=== PATIENT | female | born 1950 | race Caucasian/White ===

== ENCOUNTER → 2024-04-02 10:37 | Outpatient (REF) | payer MEDICARE, BC, SELFPAY ==
[2024-04-02 17:53] LABS: % Basophils 1.1 % (0-2); % Eosinophils 1.7 % (0-6); % Immature Granulocytes 0.3 % (0-0.5); % Lymphocytes 31.3 % (20.5-51.1); % Monocytes 9.4 % (1.7-9.3); % Neutrophils 56.2 % (42.2-75.2); Absolute Basophils 0.1 10^3/uL (0-0.2); Absolute Eosinophils 0.1 10^3/uL (0-0.7); Absolute Monocytes 0.6 10^3/uL (0.1-0.6); Absolute Neutrophils 3.6 10^3/uL (1.4-6.5); Hematocrit 42.6 % (37.0-47.0); Mean Corp Hgb Conc. 32.9 g/dL (33.0-37.0); Mean Corpuscular Hgb 32.1 pg (27.0-31.0); Mean Corpuscular Volume 97.7 fL (81.0-99.0); Nucleated Red Blood Cells % 0 %; Platelet Count 318 10^3/uL (130-400); Red Blood Cell Count 4.36 10^6/uL (4.20-5.40); Red Cell Dist. Width 12.2 % (11.5-14.5); Urine Albumin Negative (Neg - Trace); Urine Bilirubin Negative (Negative); Urine Character Clear (Clear); Urine Color Yellow; Urine Glucose Negative (Negative); Urine Ketone 1+ (Negative); Urine Leukocyte 1+ (Negative); Urine Nitrite Negative (Negative); Urine Occult Blood Negative (Negative); Urine Specific Gravity 1.015 (<1.030); Urine Urobilinogen Negative (Neg - 1+); Urine pH 6.5 (5.0-9.0); White Blood Cell Count 6.5 10^3/uL (4.8-10.8)
[2024-04-02 18:08] LABS: C-Reactive Protein < 5.00 mg/L (0.0-10.00)
[2024-04-02 18:10] LABS: Urine Red Blood Cell None Seen /HPF (0-2)
[2024-04-02 18:20] LABS: ALT (SGPT) 21 U/L (0-35); AST (SGOT) 35 U/L (14-36); Albumin 4.6 g/dl (3.5-5.0); Alkaline Phosphatase 78 U/L (38-126); Amylase 71 U/L (30-110); Blood Urea Nitrogen 19 mg/dl (7-17); Calcium 9.9 mg/dl (8.4-10.2); Carbon Dioxide 25 mmol/L (22-30); Chloride 105 mmol/L (98-107); Glucose 83 mg/dl (70-99); Lipase 105 U/L (23-300); Potassium 4.4 mmol/L (3.5-5.1); Sodium 136 mmol/L (135-145); Total Bilirubin 0.9 mg/dl (0.2-1.3); Total Protein 7.3 g/dl (6.3-8.2); eGFR > 60.00
== END ==
LOC: CLAB 10:37
PROVIDERS: ATTENDING PHYSICIAN Nurse Practitioner Family
DX: R10.9 Unspecified abdominal pain (principal); R35.0 Frequency of micturition
CPT/HCPCS: 80053; 81003; 81015; 82150; 83690; 85025; 86140; 87086

== ENCOUNTER → 2024-04-09 10:58 | Outpatient (REF) | payer MEDICARE, BC, SELFPAY | LOC: RAD 10:58 | PROVIDERS: ATTENDING PHYSICIAN Nurse Practitioner Family | DX: R10.9 Unspecified abdominal pain (principal); Z87.19 Personal history of other diseases of the digestive system; K57.90 Diverticulosis of intestine, part unspecified, without perforation or abscess without bleeding | CPT/HCPCS: 74177; Q9967 ==

== ENCOUNTER 2024-04-11 03:27 | Emergency (ER) | payer MEDICARE, BC, SELFPAY ==
[2024-04-11 03:28] VITALS: BP 158/68
[2024-04-11 04:19] LABS: % Basophils 1.3 % (0-2); % Eosinophils 2.4 % (0-6); % Immature Granulocytes 0.3 % (0-0.5); % Monocytes 12.9 % (1.7-9.3); % Neutrophils 47.1 % (42.2-75.2); Absolute Basophils 0.1 10^3/uL (0-0.2); Absolute Eosinophils 0.2 10^3/uL (0-0.7); Absolute Lymphocytes 2.5 10^3/uL (1.2-3.4); Absolute Monocytes 0.9 10^3/uL (0.1-0.6); Absolute Neutrophils 3.3 10^3/uL (1.4-6.5); Hematocrit 38.7 % (37.0-47.0); Hemoglobin 13.9 g/dL (12.0-16.0); Mean Corp Hgb Conc. 35.9 g/dL (33.0-37.0); Mean Corpuscular Hgb 32.1 pg (27.0-31.0); Mean Corpuscular Volume 89.4 fL (81.0-99.0); Mean Platelet Volume 9.6 fL (7.4-10.4); Nucleated Red Blood Cells % 0 %; Platelet Count 330 10^3/uL (130-400); Red Blood Cell Count 4.33 10^6/uL (4.20-5.40); Red Cell Dist. Width 11.9 % (11.5-14.5)
[2024-04-11 04:21] LABS: Urine Albumin Negative (Neg - Trace); Urine Bilirubin Negative (Negative); Urine Character Clear (Clear); Urine Color Yellow; Urine Glucose Negative (Negative); Urine Ketone Negative (Negative); Urine Leukocyte Negative (Negative); Urine Nitrite Negative (Negative); Urine Occult Blood Negative (Negative); Urine Urobilinogen Negative (Neg - 1+)
--- NOTE | 2024-04-11 04:28 | ED.GENMED ---
History of Present Illness
General
Chief Complaint: Abdominal Pain
Source: patient
Time Seen by Provider: 04/11/24 04:21
Travel History
Have you had any contact with someone who has COVID-19?: No
Do you have any symptoms of coronavirus? Fever > 100 degrees, chills, cough, shortness of breath, sore throat, loss of taste or smell, muscle aches, or headache?: No
History of Present Illness
History of Present Illness:
73-year-old female presents to the emergency room complaining of abdominal pain. Patient has been having crampy abdominal pain, gaseousness for the past couple weeks. She had a CAT scan yesterday which was reportedly normal. Patient comes back
today because she is concerned that she might have a bowel obstruction. No vomiting. She has had bowel movements though small. No fever or chills. No urinary symptoms.
Past History
Past History
ED Past Medical History: GERD, Hypercholesterolemia, Other (Diverticulitis, breast cancer, status post appendectomy status post cholecystectomy) and Other (thyroid nodules)
ED Past Surgical History: Appendectomy and Cholecystectomy
Social History
Tobacco: Non-smoker
Alcohol: None
Drug: None
Personal:
Living: with family
Family History
Family History: Other (Breast cancer)
Phy Exam
Physical Exam
Physical Exam:
General: Awake, Alert, Oriented X3. No acute distress.
Vitals: unremarkable
Head: Atraumatic
Eyes: Pupils equal, EOMI
Throat: Airway intact, no exudates
Neck: Trachea midline
Lungs: Clear and equal b/l
Heart: Regular rate, no murmurs
Abd: Soft, no reproducible abdominal pain to palpation, no pulsatile mass
Neuro: Nonfocal
Skin: Warm, dry, no rash
Extremities: pulses equal b/l, no edema
Course
Orders/Labs/Results
Orders:
Orders
04/11/24 04:04
Complete Blood Count/With Diff Urgent
Comprehensive Metabolic Panel Urgent
Lipase Urgent
04/11/24 04:07
Urinalysis Reflex To Culture Urgent
Date Specimen was Collected: 04/11/24
Time Specimen was Collected: 04:05
04/11/24 04:30
0.9% Sodium Chloride 500 ml [Nss] 500 ml IV BOLUS
Dicyclomine [Bentyl] 20 mg PO NOW STA
Abnormal Lab Results
04/11/24
04:04
MCH 32.1 H pg
(27.0-31.0)
Absolute Monos (auto) 0.9 H 10^3/uL
(0.1-0.6)
Monocytes % 12.9 H %
(1.7-9.3)
BUN 21 H mg/dl
(7-17)
04/11/24 04:04
04/11/24 04:04
Vital Signs
Initial and Last Documented VS:
Initial Vital Signs
Temp Pulse Resp BP Pulse Ox
97.5 F 55 16 158/68 99
04/11/24 03:28 04/11/24 03:28 04/11/24 03:28 04/11/24 03:28 04/11/24 03:28
Last Documented Vital Signs
Temp Pulse Resp BP Pulse Ox
97.6 F 47 16 134/62 100
04/11/24 05:25 04/11/24 05:25 04/11/24 05:25 04/11/24 05:25 04/11/24 05:25
MDM/Problems Addressed
Differential Diagnosis Includes:
Exacerbation of your bowel syndrome, diverticulitis, urinary tract infection
MDM/Problems Addressed:
Patient presents with left lower abdominal pain which has been something she has had from time to time. Patient had a CT scan of the abdomen pelvis yesterday which showed no acute abnormalities. Patient's labs are unremarkable. Urine shows no
evidence for urinary tract infection. Suspect the patient's symptoms are due to irritable bowel syndrome which she does have a history of. She felt better after Bentyl, IV fluids
Chronic conditions affecting care: Other (Irritable bowel syndrome)
*Pulse Oximetry
Patient hypoxic: no
*Critical Care Note
Total Time (30-74mins, 75-104mins- exclusive of procedures): Not Applicable
ED Attending Note
-
Portions of this chart may have been created with voice recognition software.� Occasional wrong word or��sound alike� substitutions may have occurred due to the inherent limitations of voice recognition software.
Discharge Plan
Departure
Patient Disposition: Home (Routine Discharge)
Date of Disposition: 04/11/24
Time of Disposition: :43
Patient with high blood pressure during this ER visit?: No
Condition: Good
Discharge Problem:
Abdominal pain, IBS (irritable colon syndrome)
Instructions: Irritable bowel syndrome, IBS Diet
Prescriptions:
New
dicyclomine 20 mg tablet
20 mg PO QID PRN (Reason: abdominal pain) Qty: 20 0RF
No Action
multivitamin [Daily Multiple] 1 EACH tablet
1 ea PO DAILY
metoprolol succinate 50 MG tablet extended release 24 hr
50 mg PO DAILY
letrozole 2.5 MG tablet
2.5 mg PO DAILY
rosuvastatin [Crestor] 5 MG tablet
5 mg PO .4X PER WEEK
alprazolam [Xanax] 0.25 mg Tablet
0.125 mg PO PRN PRN (Reason: anxiety)
Referrals:
Carey Michel MD [Family Provider] -
Interventions
Interventions:
*Risk Screen - Suicide Last Done: 04/11/24 03:28
*General Assessment Last Done: 04/11/24 03:28
*Neglect/Abuse Screening Last Done: 04/11/24 03:28
ED- Fall Risk Assessment Last Done: 04/11/24 04:14
*ED COVID-19 Vaccine History Last Done: 04/11/24 03:55
TR-Aeawxy-Icuiwsqceu Assessment Last Done: 04/11/24 04:14
Discharge Date and Time
Print Language: DANISH
[2024-04-11 04:45] LABS: ALT (SGPT) 19 U/L (0-35); AST (SGOT) 34 U/L (14-36); Albumin 4.5 g/dl (3.5-5.0); Alkaline Phosphatase 84 U/L (38-126); Blood Urea Nitrogen 21 mg/dl (7-17); Calcium 9.8 mg/dl (8.4-10.2); Carbon Dioxide 28 mmol/L (22-30); Chloride 105 mmol/L (98-107); Glucose 96 mg/dl (70-99); Lipase 183 U/L (23-300); Potassium 3.5 mmol/L (3.5-5.1); Sodium 142 mmol/L (135-145); Total Bilirubin 0.6 mg/dl (0.2-1.3); Total Protein 7.1 g/dl (6.3-8.2); eGFR > 60.00
[2024-04-11] MEDS: BENTYL 20 MG PO (04:56)
[2024-04-11] MEDS: NSS 500 IV (04:56)
[2024-04-11 05:25] VITALS: BP 134/62
== END 2024-04-11 06:32 | disposition home or self-care (01) ==
LOC: EMR 03:27
PROVIDERS: EMERGENCY PHYSICIAN Emergency Medicine; FAMILY PHYSICIAN Family Medicine
DX: R10.9 Unspecified abdominal pain (principal); K58.9 Irritable bowel syndrome, unspecified
CPT/HCPCS: 99284; 96360; 80053; 81003; 83690; 85025

== ENCOUNTER → 2025-02-03 14:37 | Outpatient (REF) | payer MEDICARE, BC, SELFPAY | LOC: HWRAD 14:37 | PROVIDERS: ATTENDING PHYSICIAN Otolaryngology; FAMILY PHYSICIAN Family Medicine | DX: J32.0 Chronic maxillary sinusitis (principal) | CPT/HCPCS: 70220 ==

== ENCOUNTER 2025-10-13 06:34 | Day surgery (SDC) | payer MEDICARE, BC, SELFPAY | END 2025-10-13 11:54 | disposition home or self-care (01) | LOC: GI 06:34 | PROVIDERS: ATTENDING PHYSICIAN Internal Medicine | DX: Z12.11 Encounter for screening for malignant neoplasm of colon (principal); K64.8 Other hemorrhoids; K57.30 Diverticulosis of large intestine without perforation or abscess without bleeding; K63.5 Polyp of colon; Z80.0 Family history of malignant neoplasm of digestive organs | CPT/HCPCS: 45385; 88305 ==

== ENCOUNTER → 2025-10-27 15:54 | Outpatient (REF) | payer MEDICARE, BC, SELFPAY ==
[2025-10-27 16:29] LABS: Hematocrit 38.3 % (37.0-47.0); Hemoglobin 13.0 g/dL (12.0-16.0); Mean Corp Hgb Conc. 33.9 g/dL (33.0-37.0); Mean Corpuscular Volume 95.0 fL (81.0-99.0); Nucleated Red Blood Cells % 0 %; Platelet Count 336 10^3/uL (130-400); Red Cell Dist. Width 12.4 % (11.5-14.5)
[2025-10-27 16:40] LABS: ALT (SGPT) 21 U/L (0-35); AST (SGOT) 32 U/L (14-36); Albumin 4.5 g/dl (3.5-5.0); Alkaline Phosphatase 68 U/L (38-126); Blood Urea Nitrogen 20 mg/dl (7-17); Calcium 10.3 mg/dl (8.4-10.2); Carbon Dioxide 29 mmol/L (22-30); Chloride 104 mmol/L (98-107); Glucose 83 mg/dl (70-99); Potassium 4.2 mmol/L (3.5-5.1); Sodium 137 mmol/L (135-145); Total Protein 7.2 g/dl (6.3-8.2); eGFR > 60.00
== END ==
LOC: CLAB 15:54
PROVIDERS: ATTENDING PHYSICIAN Family Medicine
DX: R79.89 Other specified abnormal findings of blood chemistry (principal); R79.9 Abnormal finding of blood chemistry, unspecified
CPT/HCPCS: 36415; 80053; 85025